=== PATIENT | female | born 1975 | race African-American/Black ===

== ENCOUNTER 2022-12-05 13:37 | Emergency (ER) | payer MEDICARE, MEDICAID ==
[~2022-12-05] VITALS: Ht 167.6 cm; Wt 86.0 kg
[2022-12-05] MEDS ORDERED: HYDRALAZINE HCL 50MG TABLET PO ONE (14:15)
[2022-12-05] MEDS: CARVEDILOL 12.5MG TABLET PO ONE ×2 (14:46→15:42)
[2022-12-05 14:47] LABS: BASOPHILS % 1.5 % (0.0-2.0); EOSINOPHILS % 4.2 % (0.0-5.0); HEMATOCRIT. 34.6 % (36.0-48.0); HEMOGLOBIN. 11.5 g/dL (12.0-16.0); LYMPHOCYTES % 21.1 % (20.0-50.0); MEAN CORPUSCULAR HEMOGLOBIN 27.9 pg (28.0-32.0); MEAN CORPUSCULAR VOLUME 83.6 fL (81.0-99.0); MEAN PLATELET VOLUME 8.8 fl (7.4-10.4); MONOCYTES % 5.5 % (2.0-8.0); NEUTROPHILS % 67.7 % (40.0-76.0); PLATELET 181 x1000/uL (130-400); RED BLOOD CELL COUNT 4.13 mill/uL (4.2-5.4); RED CELL DISTRIBUTION WIDTH 20.1 % (11.6-14.6)
[2022-12-05 15:09] LABS: CHLORIDE 95 mEq/L (98-107)
[2022-12-05] MEDS ORDERED: ACETAMINOPHEN 325MG TABLET PO ONE (15:45)
[2022-12-05] MEDS ORDERED: METHOCARBAMOL 500MG TABLET PO ONE (15:45)
[2022-12-05] MEDS ORDERED: FUROSEMIDE 40MG/4ML VIAL IVP SCH (15:45)
[2022-12-05] MEDS ORDERED: ASPIRIN 325MG EC TABLET PO ONE (16:00)
[2022-12-05 18:30] VITALS: BP 166/59
== END 2022-12-05 18:39 | disposition left against medical advice (07) ==
LOC: ER 13:37 → CANBEDREQ 17:54 → ER 18:39
DX: I21.3 ST elevation (STEMI) myocardial infarction of unspecified site (principal); I10 Essential (primary) hypertension; E87.70 Fluid overload, unspecified; E11.9 Type 2 diabetes mellitus without complications; Z98.890 Other specified postprocedural states
CPT/HCPCS: 36415; 71045; 80053; 83880; 84484; 85025; 93005; 96374; 99285; J1940